=== PATIENT | male | born 1970 | race Caucasian/White ===

== ENCOUNTER 2019-01-22 11:57 | Emergency (ER) | payer OTHER ==
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
[2019-01-22] MEDS ORDERED: NAPROXEN 250 MG TABLET PO ONE (14:14)
[2019-01-22] MEDS ORDERED: DEXAMETHASONE SOD PHOS INJ 10 MG/1 ML VIAL IM ONE (14:14)
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
[2019-01-22 14:27] VITALS: BP 130/88
== END 2019-01-22 14:46 | disposition home or self-care (01) ==
LOC: ER 11:57
DX: M54.5 Low back pain (principal); V49.40XA Driver injured in collision with unspecified motor vehicles in traffic accident, initial encounter; M43.16 Spondylolisthesis, lumbar region
CPT/HCPCS: 99283; 96372; 72110; J1100